=== PATIENT | female | born 1995 | race Two or more races ===

== ENCOUNTER 2025-08-03 19:11 | Emergency (ER) | payer BC ==
[~2025-08-03] VITALS: Ht 157.5 cm; Wt 61.2 kg
[2025-08-03] MEDS ORDERED: TETANUS & DIPHTHERIA TOX,ADULT 0.5 ML VIAL IM ONE (20:00)
[2025-08-03] MEDS ORDERED: CEFTRIAXONE SODIUM 1,000 MG VIAL IM ONE (20:00)
[2025-08-03] MEDS ORDERED: KETOROLAC TROMETHAMINE 60 MG VIAL IM ONE (21:00)
[2025-08-03] MEDS ORDERED: LIDOCAINE HCL 1% 10ML VIAL PERCUT ONE (21:00)
[2025-08-03] MEDS ORDERED: ACETAMINOPHEN500 M2 PO (21:50)
[2025-08-03] MEDS ORDERED: AMOX-CLAV 875-1 EACH PO (21:50)
== END 2025-08-03 23:00 | disposition home or self-care (01) ==
LOC: ER 19:12
DX: S91.311A Laceration without foreign body, right foot, initial encounter (principal); W45.8XXA Other foreign body or object entering through skin, initial encounter; Y93.89 Activity, other specified; Y92.89 Other specified places as the place of occurrence of the external cause; Y99.8 Other external cause status
CPT/HCPCS: 13132; 13133 ×2; 73630; 90471; 90714; J1670